=== PATIENT | female | born 1965 ===

== ENCOUNTER 2019-04-28 17:14 | Emergency (ER) | payer MEDICARE, MEDICAID ==
[~2019-04-28] VITALS: Ht 152.4 cm; Wt 118.5 kg
[~2019-04-28 17:14] MED LIST: ALPR-475 PO; ALPR0.5T6 PO; ASPI-430; ASPI-496 PO; ATOR20TA37 PO; ATOR40TA78 PO; CLON0.1T22 PO; CYCL10TA50; DIVA500T4 PO; DULO60CA7; ENAL1.2513 IV; ENOX40SY4 SQ; FLUO20CA8 PO; FURO-93; GABA300C10 PO; GLIM4TAB PO; HYDR-3237 PO; HYDR10TA4 PO; HYDR1LIQ6 IV; HYDR50TA13 PO; IBUP-1221; IBUP-1222 PO; LEVO100V IV; LEVO125T PO; LEVO200T5; LISI-167; LISI-167 PO; LISI-170 PO; LORA1TAB; LORA2VIA6 IV; MELO15TA24 PO; MELO7.5T31 PO; METF-649 PO; METF500T17 PO; METH500T7 PO; MULT-658 PO; MVI; OLAN2.5T10 PO; ONDA8TAB9; OXYC-302 PO; OXYC-307; PANT40TA5 PO; PANT40VI IV; PIOG15TA22 PO; POLY17PO5 PO; RISP0.2518 PO; RISP1TAB3 PO; SERT100T32 PO; SERT50TA28 PO; SIMV20TA3 PO; TIZA2CAP PO; TIZA4TAB PO; TRAZ50TA66 PO; ZIPR20VI IM; ZOLP10TA5 PO; [UNRECOGNIZED DRUG - CODE] IV
[2019-04-28 17:21] VITALS: BP 105/70
[2019-04-28] MEDS ORDERED: KETOROLAC 30 MG/1 ML ONE (18:06)
[2019-04-28] MEDS ORDERED: KETOROLAC 30 MG/1 ML IM ONE (18:30)
--- NOTE | 2019-04-28 19:30 | NUR ---
TECH PLACED AIRSTIRRUP AND WRIST SPLINT. +CMS. DC EDUCATION PROVIDED, PT DEMONSTRATES UNDERSTANDING. PT TRANSFERED SELF TO WHEELCHAIR. WHEELED TO DC WITH TECH AND SO. SO TO TRASORT PT HOME.
== END 2019-04-28 19:33 | disposition home or self-care (01) ==
LOC: ED 19:27
DX: G89.11 Acute pain due to trauma (principal); M25.531 Pain in right wrist; M25.562 Pain in left knee; M25.572 Pain in left ankle and joints of left foot; E11.9 Type 2 diabetes mellitus without complications; F17.200 Nicotine dependence, unspecified, uncomplicated; W18.30XA Fall on same level, unspecified, initial encounter; Y93.89 Activity, other specified; Y92.89 Other specified places as the place of occurrence of the external cause; Y99.8 Other external cause status
CPT/HCPCS: 29125; 73110; 73130; 73564; 73630; 96372; 99283; J1885